=== PATIENT | male | born 1990 | race African-American/Black ===

== ENCOUNTER 2019-11-27 03:56 | Emergency (ER) | payer SELFPAY ==
[2019-11-27] MEDS ORDERED: ACETAMINOPHEN 325 MG TABLET PO ONE (04:50)
[2019-11-27] MEDS ORDERED: METHYLPREDNISOLONE INJ 125 MG/2 ML SDV IV ONE (10:47)
[2019-11-27] MEDS ORDERED: METOCLOPRAMIDE HCL INJ/PF 10 MG/2 ML SDV IV ONE (10:47)
[2019-11-27] MEDS ORDERED: NORMAL SALINE 1000 ML 1,000 ML IV ONE (10:47)
[2019-11-27] MEDS ORDERED: DIPHENHYDRAMINE HCL 50 MG/ML VIAL IV ONE (10:47)
[2019-11-27] MEDS ORDERED: KETOROLAC TROMETHAMINE INJ/PF 30 MG/1 ML SDV IV ONE (10:47)
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
[2019-11-27 14:21] VITALS: BP 123/69
== END 2019-11-27 14:05 | disposition home or self-care (01) ==
LOC: ER 03:56
DX: R51 Headache (principal); H57.11 Ocular pain, right eye; F17.200 Nicotine dependence, unspecified, uncomplicated; Z87.828 Personal history of other (healed) physical injury and trauma
CPT/HCPCS: 99283; 96361; 96374; 96375; J1200; J2930; J1885; J2765; J7030